=== PATIENT | female | born 1935 | race Caucasian/White ===

== ENCOUNTER 2016-12-02 13:54 | Outpatient (CLI) | payer MEDICARE, BC ==
[2012-11-09 11:42] VITALS: O2SAT 97
== END 2016-12-02 13:55 | disposition home or self-care (01) | DRG 566 ==
LOC: CONVCARE 13:54
PROVIDERS: ATTEND Orthopaedic Surgery
DX: Z96.651 Presence of right artificial knee joint (principal)
CPT/HCPCS: 73560; 87070; 87075; 87077; 87186

== ENCOUNTER 2016-12-13 06:00 | Emergency (ER) | payer MEDICARE, BC ==
[2016-12-13 06:14] VITALS: TEMP 97.4
[2016-12-13] MEDS ORDERED: ALBUTEROL/IPRATROPIUM 1 VIAL SOL INH ONE ×2 (06:17→06:49)
[2016-12-13] MEDS ORDERED: SOLUMEDROL 125 MG/2 ML 125 MG/2 ML PDS IM ONE (06:17)
[2016-12-13] MEDS ORDERED: ALBUTEROL/IPRATROPIUM 1 VIAL SOL ONE ×2 (06:19→06:50)
[2016-12-13] MEDS ORDERED: SOLUMEDROL 125 MG/2 ML 125 MG/2 ML PDS ONE (06:19)
[2016-12-13 07:13] VITALS: PULSE 96; RESP 20; O2SAT 91
[2016-12-13 07:31] VITALS: BP 130/87
== END 2016-12-13 07:30 | disposition home or self-care (01) | DRG 192 ==
LOC: ED 06:00
DX: J44.9 Chronic obstructive pulmonary disease, unspecified (principal); Z72.0 Tobacco use
CPT/HCPCS: 71010; 96372; 99284; J2930; J7620

== ENCOUNTER 2017-06-22 14:16 | Outpatient (CLI) | payer MEDICARE, BC ==
[2016-12-13 07:13] VITALS: O2SAT 91
== END 2017-06-22 14:17 | disposition home or self-care (01) | DRG 556 ==
LOC: CONVCARE 14:16
PROVIDERS: ATTEND Orthopaedic Surgery
DX: M25.572 Pain in left ankle and joints of left foot (principal)
CPT/HCPCS: 73610

== ENCOUNTER 2017-10-12 12:30 | Outpatient (CLI) | payer MEDICARE, BC ==
[2016-12-13 07:13] VITALS: O2SAT 91
== END 2017-10-12 12:31 | disposition home or self-care (01) | DRG 950 ==
LOC: CONVCARE 12:30
PROVIDERS: ATTEND Orthopaedic Surgery
DX: T84.53XD Infection and inflammatory reaction due to internal right knee prosthesis, subsequent encounter (principal)
CPT/HCPCS: 73560

== ENCOUNTER 2018-01-18 15:17 | Outpatient (CLI) | payer MEDICARE, BC ==
[2016-12-13 07:13] VITALS: O2SAT 91
== END 2018-01-18 15:18 | disposition home or self-care (01) | DRG 561 ==
LOC: CONVCARE 15:17
PROVIDERS: ATTEND Orthopaedic Surgery
DX: Z47.1 Aftercare following joint replacement surgery (principal); M25.551 Pain in right hip; M25.561 Pain in right knee; Z96.651 Presence of right artificial knee joint; Z96.641 Presence of right artificial hip joint
CPT/HCPCS: 73502; 73560

== ENCOUNTER 2018-11-17 12:00 | Outpatient (CLI) | payer MEDICARE, BC | END 2018-11-17 12:01 | disposition home or self-care (01) | LOC: CONVCARE 12:01 ==

== ENCOUNTER 2019-01-31 11:55 | Outpatient (CLI) | payer MEDICARE, BC ==
[2019-01-25 14:49] VITALS: O2SAT 92
== END 2019-01-31 11:56 | disposition home or self-care (01) | DRG 556 ==
LOC: CONVCARE 11:55
PROVIDERS: ATTEND Orthopaedic Surgery
DX: M25.561 Pain in right knee (principal)
CPT/HCPCS: 73560

== ENCOUNTER 2019-03-07 13:14 | Outpatient (CLI) | payer MEDICARE, BC ==
[2019-03-04 14:26] VITALS: O2SAT 92
== END 2019-03-07 13:15 | disposition home or self-care (01) | DRG 566 ==
LOC: CONVCARE 13:14
PROVIDERS: ATTEND Orthopaedic Surgery
DX: M25.461 Effusion, right knee (principal)
CPT/HCPCS: 87070; 87075; 87077; 87186